=== PATIENT | female | born 1980 | race Caucasian/White ===

== ENCOUNTER 2016-03-21 14:03 | Inpatient (IN) | payer OTHER ==
[2016-03-21] MEDS ORDERED: fentaNYL 100 MCG/2 ML INJ IVP ONE (14:16)
[2016-03-21] MEDS ORDERED: BENZOCAINE UNIT DOSE SPRAY HURRICAINE MM ONE (14:16)
[2016-03-21] MEDS ORDERED: MIDAZOLAM 2 MG/2 ML VIAL IVP ONE (14:16)
[2016-03-21] MEDS ORDERED: NS 1,000 ML IV ONE (14:16)
[2016-03-21] MEDS ORDERED: MIDAZOLAM 2 MG/2 ML VIAL ONE (14:38)
[2016-03-21] MEDS ORDERED: fentaNYL 100 MCG/2 ML INJ ONE (14:38)
--- NOTE | 2016-03-21 17:19 | ECHO ---
[id number] + + [address] : : [facility] [address] : : [phone] + + Transesophageal Echocardiographic Report + ------+ :Name: COBY ANTHONY RStudy Date: 03/21/2016 02:48 PM : : Hospital Admission Number: [id number] Locatio n: CVC: :: 1980 Gender: Female Height: 61 in : :Age: 36 yrs Race: WH Weight: 147 lb : :Reason For Study: Mass observed in RA on Transthoracic echo : : BSA: 1.7 meters 2 : + ------+ Left Ventricle The left ventricle is normal in size and function. Ejection Fraction = 60%. Atria The interatrial septum is intact with no evidence for an atrial septal defect. Injection of contrast documented no interatrial shunt. No thrombus is detected in the left atrial appendage. A mass is seen in the right atrium. Mitral Valve The mitral valve is normal in structure and function. There is trace mitral regurgitation. Tricuspid Valve The tricuspid valve is normal in structure and function. Aortic Valve The aortic valve is normal in structure and function. There is no aortic insufficiency. Pulmonic Valve The pulmonic valve is normal in structure and function. Pericardium There is no pericardial effusion. Conclusion A 2D transesophageal echocardiogram with color flow Doppler was performed. The left ventricle is normal in size and function. Ejection Fraction = 60%. There are no regional wall motion abnormalities. Normal appearing valves. There is trace mitral regurgitation. There is no pericardial effusion. There is a mobile 1 x 2.5 cm mass adherent to the IVC RA junction. This is likely thrombus. Injection of contrast documented no interatrial shunt. No thrombus is detected in the left atrial appendage. Final Reading Physician: Trinity Moran signed on 03/21/2016 05:18 PM Ordering Physician: Volodymyr Hightower Performed By: Volodymyr Hightower MD
[2016-03-21] MEDS ORDERED: ONDANSETRON DISINTEGRATING 4 MG TAB PO PRN (20:36)
[2016-03-21] MEDS ORDERED: ONDANSETRON 4 MG/2 ML VIAL IVP PRN (20:36)
[2016-03-21] MEDS ORDERED: HYDROCODONE/APAP 5/325 TAB PO PRN (20:36)
[2016-03-21] MEDS ORDERED: ACETAMINOPHEN 325 MG TAB PO PRN (20:36)
--- NOTE | 2016-03-21 20:45 | PDGENHP ---
History and Physical - Chief Complaint new RA/IVC mass - History of Present Illness This is a 36 yo Female with hx of Breast Cancer undergoing chemotherapy who had a routine TTE today that showed a RA mass. She underwent a CRISTOFER which confirmed a new IVC/RA Mass. She was sent for direct admission for anticoagulation and for additional imaging. Otherwise, echocardiograms showed a preserved LVEF. She is not symptomatic. Denies CP, SOB, palpitations, leg swelling, or other. ROS: per HPI, otherwise negative PMHx: Breast cancer PSurgHx: Bilateral mastectomy, breast reconstruction soc: no T/E/I Meds/All: reviewed O: VSS, RA NAD AAOX3 NO JVD RRR CTAB S/NT/ND NO EDEMA LABS: NONE I/P #RIGHT ATRIUM/IVC MASS OF UNCLEAR ETIOLOGY #BREAST CANCER Plan: START HEPARIN DRIP GIVE IVF TO ENSURE HYDRATION CTA CHEST AND CT ABD/PELVIS TOMORROW ONCOLOGY TO CONSULT, DISCUSSED TODAY FULL CODE TOTAL CARE TIME IS 45 MINUTES History Information - Allergies/Home Medication List Allergies/Adverse Reactions: No Known Allergies Allergy (Unverified 10/02/15 09:54) Home Medications: DEXAMETHASONE 0 mg IV Q21D 03/21/16 [Last Taken 03/19/16] Docetaxel 0 mg IV Q21D 03/21/16 [Last Taken 03/11/16] Herceptin 440 MG/20 ML 0 mg IV Q21D 03/21/16 [Last Taken 03/11/16] PARAplatin 0 mg IV Q21D 03/21/16 [Last Taken 03/12/16] Perjeta 0 mg IV Q21D 03/21/16 [Last Taken 03/11/16] I have personally reviewed and updated: medical history, social history - Social History Smoking Status: Never smoked Physical Exam Temp Pulse Resp BP Pulse Ox 36.8 C 87 16 121/69 H 93 03/21/16 19:35 03/21/16 19:35 03/21/16 19:35 03/21/16 19:35 03/21/16 19:35
[2016-03-21] MEDS ORDERED: HEPARIN 10,000 UNIT/10 ML MDV IVP ONE (21:00)
[2016-03-21] MEDS ORDERED: HEPARIN 10,000 UNIT/10 ML MDV IVP PRN (21:00)
[2016-03-21 21:10] LABS: ABSOLUTE IMMATURE GRANULOCYTES 0.09 10^3/uL (0.00-0.10); ADD DIFF? NO; ADD MORPH? NO; ADD SCAN? NO; ATYPICAL LYMPHOCYTE FLAG 20 (0-99); FRAGMENT RBC FLAG 0 (0-99); HEMATOCRIT 34.4 % (38.0-47.0); HEMOGLOBIN 11.6 g/dL (12.6-16.3); LEFT SHIFT FLG 0 (0-99); LIPEMIA HEMOLYSIS FLAG 80 (0-99); MEAN CELL HEMOGLOBIN CONCENTR. 33.7 g/dL (32.4-36.7); MEAN CELL VOLUME 100.9 fL (81.5-99.8); MEAN PLATELET VOLUME 10.4 fL (8.7-11.7); PLATELET CLUMPS FLAG 0 (0-99); PLATELET COUNT 166 10^3/uL (150-400); RED BLOOD CELL COUNT 3.41 10^6/uL (4.18-5.33); RED CELL DISTRIBUTION WIDTH 13.3 % (11.5-15.2)
[2016-03-21 21:18] LABS: INR 1.08 (0.83-1.16); PROTIME(PATIENT) 13.9 SEC (12.0-15.0)
[2016-03-21 21:19] LABS: APTT 29.5 SEC (23.0-38.0)
[2016-03-21] MEDS: HEPARIN/DEXTROSE 500 ML IV SCH (21:45)
[2016-03-21] MEDS: NS 1,000 ML IV SCH (21:46)
[2016-03-22 04:18] LABS: % IMMATURE GRANULYOCYTES 1.1 % (0.0-1.1); ADD DIFF? NO; ADD MORPH? NO; ADD SCAN? NO; ATYPICAL LYMPHOCYTE FLAG 10 (0-99); FRAGMENT RBC FLAG 0 (0-99); HEMOGLOBIN 10.9 g/dL (12.6-16.3); LEFT SHIFT FLG 0 (0-99); LIPEMIA HEMOLYSIS FLAG 80 (0-99); MEAN CELL HEMOGLOBIN 33.7 pg (27.9-34.1); MEAN CELL VOLUME 102.2 fL (81.5-99.8); MEAN PLATELET VOLUME 10.5 fL (8.7-11.7); PLATELET CLUMPS FLAG 0 (0-99); PLATELET COUNT 152 10^3/uL (150-400); RED BLOOD CELL COUNT 3.23 10^6/uL (4.18-5.33); RED CELL DISTRIBUTION WIDTH 13.2 % (11.5-15.2)
[2016-03-22 04:44] LABS: ANION GAP 11 mEq/L (8-16); CALCIUM 8.9 mg/dL (8.5-10.4); CARBON DIOXIDE 25 mEq/l (22-31); CHLORIDE 109 mEq/L (97-110); CREATININE 0.7 mg/dL (0.6-1.0); GLOMERULAR FILTRATION RATE > 60; GLUCOSE 89 mg/dL (70-100); MAGNESIUM 1.5 mg/dL (1.6-2.3); SODIUM 145 mEq/L (134-144)
[2016-03-22] MEDS: NS 1,000 ML IV SCH ×2 (07:40→22:07)
[2016-03-22] MEDS ORDERED: IOPAMIDOL (ISOVUE 370) 100 ML BTL IV ONE (09:09)
--- NOTE | 2016-03-22 11:58 | CT ---
CT Chest Pulmonary Angiogram With Contrast Enhancement and Multiplanar Reconstructions at 1032 hours History: Right atrial and inferior vena cava mass on cardiac echo. History of breast cancer. Comparison: None available. Technique: 1.25 mm axial multidetector helical CT angiogram imaging was performed through the chest, abdomen and pelvis while 90 mL Isovue-370 were injected intravenously without complication. The imag es were then transferred to an independent workstation where multiplanar and three-dimensional recons tructions were performed by the interpreting physician and reviewed at multiple windows. Dose reducti on techniques were utilized. Findings: CT Pulmonary Angiogram Findings: No CT evidence of definite pulmonary thromboemboli. Subtle filling d efect in the right atrium measuring 15 x 14 mm in axial dimension. No pericardial effusion. No aortic aneurysm or dissection. CT Chest Findings: No pneumonia, pleural effusion or pneumothorax. No significant mediastinal or eric r adenopathy. No significant axillary adenopathy. Bilateral reconstruction implants noted. No suspici ous pulmonary nodules. No destructive osseous lesions. Impression: 1. No definite pulmonary thromboemboli. 2. Right atrial subtle 15 x 14 mm filling defect which may represent tumor thrombus, neoplasm, or pos sibly flow artifact. 3. Recommend cardiac MRI without and with contrast enhancement for further evaluation.
--- NOTE | 2016-03-22 12:59 | CT ---
CT Scan of the Abdomen and Pelvis (With Contrast) at 1032 hours History: Right atrial and inferior vena cava mass on cardiac echo. History of breast cancer. Technique: Axial computed tomographic images of the chest, abdomen and pelvis were obtained with the uneventful intravenous administration of 90 mL Isovue-300 contrast. No oral or rectal contrast which limits the study. Dose reduction techniques were utilized. Findings CT Abdomen Findings: Lung bases: No evidence of pleural effusion. No thrombus within the inferior vena cava or hepatic vei ns. Liver: No metastasis. Biliary system: No obstruction. Spleen: Normal. Pancreas: Normal. Adrenals: Normal. Kidneys: No obstruction or solid masses.. Abdominal Aorta: No aneurysm. No bowel obstruction, ascites, or significant retroperitoneal lymphadenopathy. CT Pelvis Findings: No significant retroperitoneal or pelvic adenopathy. IUD in the uterus. No signif icant adenopathy. No destructive osseous lesions. Impression: 1. No evidence of abdominal or pelvic metastasis. 2. No hepatic metastasis. 3. No evidence of thrombus in the inferior vena cava or hepatic veins.
--- NOTE | 2016-03-22 13:23 | GCON ---
[f rep st] CONSULTATION NEW PATIENT CONSULT REFERRING PHYSICIAN: Josiah Pittman MD REASON FOR CONSULTATION: Patient with known stage IIB, HER2 positive breast cancer, currently undergoing adjuvant chemotherapy. Incidentally found to have a right atrial filling defect on her recent echo. HISTORY OF PRESENT ILLNESS: Patient is a 36-year-old female who noted a mass in her left breast just below the nipple in August of 2015. Diagnostic mammogram showed lobulated asymmetric mass behind left nipple, 1.8 x 1.5 x 1.5. She had an in-office needle biopsy which showed invasive ductal carcinoma, grade 2, ER receptor was 5, CT 6. Proliferation index 5%. HER2 was 2+ but negative on reflex to FISH. Breast MRI showed left breast mass contiguous with the nipple, measuring 2 cm with associated 5 mm satellite nodule. There were no suspicious axillary nodes. After consultation, patient opted for bilateral mastectomies which were performed with reconstruction by Dr. Celeste on 10/20/2015. Path from left breast showed an infiltrating ductal carcinoma with lobular features, 3 cm. [place] grade 2. There was LVI invasion present. Margins were negative. There was associated DCIS. The sentinel lymph node showed 0.5 cm metastasis without extracapsular extension. A 2nd axillary lymph node showed 0.6 cm metastasis with focal extracapsular extension. The right breast and right sentinel lymph node were unremarkable. ER/CT was repeated on surgical specimen and these were the same with ER 5, and CT of 6. HER-2/casper was also repeated and this was positive with an IHC of 3+. She recovered well from surgery and has done relatively well. She is on adjuvant care therapy with Taxotere, carboplatin, Herceptin and Perjeta. She recently completed her 5th cycle and is due for her 6th and final cycle on April 01. Her previous echo November 2015 continued to look good. Surveillance echocardiogram showed concern for an atrial clot and she had a CRISTOFER done yesterday that showed EF of 60 %. No regional wall abnormalities. Normal-appearing valves. Mobile 1 x 2.5 cm mass adherent to the IVC RA junction, likely S thrombus. She also had a CTA that was done today that showed no definitive pulmonary thromboemboli, right atrial subtle 15 x 14 mm filling defect, could represent tumor thrombus, neoplasm or possibly flow artifact. A cardiac MRI was recommended. She is currently on heparin drip and asymptomatic. She feels well. She has actually tolerated chemotherapy remarkably well. She denies any shortness of breath, upper or lower extremity edema. Of note, the CTA that was done today showed no evidence of metastatic disease. CT abdomen was also done and this is pending. REVIEW OF SYSTEMS: As per HPI. Otherwise negative. PAST MEDICAL HISTORY: None significant. PAST SURGICAL HISTORY: None. FAMILY HISTORY: Father with prostate cancer. Father also had melanoma. Mother with unknown cancer. She has had genetic testing and came back with a BRCA2 variant. PIPE INSULATOR HISTORY: , she has a 4-year-old, and 8-year-old son. SOCIAL HISTORY: No tobacco, alcohol, or drugs. PHYSICAL EXAM: Today shows a blood pressure 118/66, pulse 87, respirations 16, saturating 99% on room air. Temp 36.7. GENERAL: She is a young woman, not in acute distress. Alert and oriented. HEENT: Alopecia, anicteric sclerae. Oropharynx is clear. HEART: Regular rate and rhythm. LUNGS: Clear to auscultation. ABDOMEN: Soft, nontender. Bowel sounds positive. LOWER EXTREMITIES: No significant edema. LABS: White blood cell count of 8.8, hemoglobin 10.9, hematocrit 33, platelet count of a 152,000. Sodium 145, creatinine 0.7, magnesium 1.5, calcium 8.9, potassium 4.0. ASSESSMENT AND PLAN: A 36-year-old with stage IIB, HER2 positive breast cancer on the left, currently undergoing adjuvant chemotherapy with TCHP and pending sequential radiation treatment. She has already had reconstructions in place with Dr. Celeste. She presents with an asymptomatic IVC/RA junction thrombus that does not appear to be a tumor. She has no evidence of metastatic disease by current imaging. She is currently on a heparin drip which I agree with. Would like Cardiology to weigh in. Not sure she needs a cardiac MRI but would leave this up to cardiology. Would favor transitioning to Lovenox if discharged and then could consider oral anticoagulation going forward. The patient is in agreement with the plan. Will follow her here while she is in the hospital. /[id number]/MODL MTDD
[2016-03-22] MEDS ORDERED: GADOBUTROL 10 ML VIAL IVP ONE (14:03)
--- NOTE | 2016-03-22 15:03 | US ---
Ultrasound Venous Duplex Doppler - Bilateral Legs at 1351 hours History: Cardiac thrombus. Findings: Ultrasound venous Duplex and Doppler imaging of the bilateral common femoral veins, femoral veins, popliteal veins, calf veins, and greater saphenous vein origins demonstrates normal compressi bility, Duplex color-flow, Doppler flow without deep venous thrombosis. Impression: No deep venous thrombosis bilateral legs.
[2016-03-22 16:08] LABS: TROPONIN I < 0.012 ng/mL (0-0.034)
--- NOTE | 2016-03-22 19:58 | MR ---
Cardiac MRI Examination, Without and With Contrast, Including Functional and Anatomic Evaluation History: Evaluate for possible right atrial mass. Technique: Short and long axis double inversion recovery sequences of the heart are obtained along wi th FIESTA cine sequences in the short and long axis. During intravenous administration of 10 mL Gadav ist, dynamic perfusion imaging of the heart is obtained in short axis, along with postcontrast delaye d enhanced imaging. Findings: There is a soft tissue signal intensity mass which arises from the inferior vena cava at th e junction with the right atrium and is pedunculated in features, extending into the right atrium jus t proximal to the tricuspid valve. This lesion is best visualized on the long axis FIESTA series. The lesion moves freely within the right atrium and demonstrates peripheral rim enhancement after contra st administration. Signal characteristics are soft tissue rather than fatty. This lesion may represen t a right atrial myxoma, although with the clinical clinical history of breast malignancy, intracardi ac metastatic disease is not excluded. Imaging features are atypical for intracardiac thrombus. Measu rement is somewhat difficult due to the mobile nature of the lesion, measuring approximately 2 cm in length and 1 cm in width. Study otherwise is unremarkable. Ventricular function appears normal. Valvular function appears carrie l. No additional extracardiac findings. The patient has undergone prior bilateral breast reconstructi on. Impression: 2.0 x 1.0 cm soft tissue signal intensity mass arising from the distal inferior vena cav a and extending into the right atrium, pedunculated in features, with peripheral enhancement after co ntrast administration. 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 Differential co nsiderations predominantly include right atrial myxoma versus intracardiac metastatic lesion.
--- NOTE | 2016-03-22 21:33 | HOSPPROG ---
Hospitalist Progress Note Assessment/Plan: Assessment: 36 yo F p/w IVC/right atrial mass in setting of breast cancer Plan: # IVC/atrial mass. 2x1 cm, appears fixed to wall, no e/o distal embolization into pulm art or e/o PE on CTA - no e/o DVT - cardiac MRI suggestive of solid tumor - given that it is unclear whether this is thrombus originating from port-cath vs. solid met tumor, systemic anticoagulation indicated (hep gtt), Xa 53 therapeutic - no e/o hemodynamic compromise, so lytics not indicated - d/w Dr. St and Dr. Mccullough, recommend procedure to identify mass and either surgically remove vs. angio-suction - plan to transition to lovenox in AM if no complications within these first 24hrs on hep gtt (i.e. no embolization/PE) given high risk of saddle embolization, and continue until 12hrs prior to procedure - plan for scheduled procedure next week since equipment needs to be ordered - high risk morbidity/mortality patient 2/2 above # Breast cancer. S/p surg, currently receiving chemo, plan for subsequent XRT - d/w Dr. Riddle, overall path from mass (i.e. if it is solid tumor) may affect tx plan Diet. Regular PPx. High risk, on hep gtt Code. Full Dispo. Upgrade to inpatient admission status, patient has high risk medical necessity with an atrial mass with potentially fatal embolization if it breaks apart during the initiation of heparin products, requiring ongoing use of heparin gtt and evaluation by IR/CT surgery to determine plan for surgical removal Subjective: patient reports not present chest pain or shortness of breath, required counseling about the dx and tx plan Objective: Vital Signs Temp Pulse Resp BP Pulse Ox 37.0 C 77 16 101/69 95 03/22/16 19:25 03/22/16 19:25 03/22/16 19:25 03/22/16 19:25 03/22/16 19:25 Laboratory Results 03/22/16 04:05 03/22/16 04:05 03/21/16 03/22/16 03/23/16 05:59 05:59 05:59 Intake Total 1220 2065 Balance 1220 2065 PT 13.9 SEC (12.0-15.0) 03/21/16 20:57 INR 1.08 (0.83-1.16) 03/21/16 20:57 - Time Spent With Patient Time Spent with Patient: greater than 35 minutes Time Spent with Patient: Greater than 35 minutes spent on this patients care, greater than 50% of time spent counseling, educating, and coordinating care regarding the above mentioned plan. - Physical Exam Constitutional: no apparent distress, appears nourished, not in pain, chronically ill appearing Cardiovascular: No systolic murmur, No irregularly irregular, No tachycardia, No edema Respiratory: no respiratory distress, no rales or rhonchi, clear to auscultation Gastrointestinal: normoactive bowel sounds, soft, non-tender abdomen, no palpable masses Skin: other (port site w/o erythema/induration) Neurologic: AAOx3, sensation intact bilaterally Psychiatric: interacting appropriately, not anxious, not encephalopathic, thought process linear ICD10 Worksheet Patient Problems: Problems Problem Status Diagnosed Cancer of central portion of left breast Acute
[2016-03-22] MEDS: HEPARIN/DEXTROSE 500 ML IV SCH (22:06)
[2016-03-23 07:03] LABS: % IMMATURE GRANULYOCYTES 0.8 % (0.0-1.1); ABSOLUTE IMMATURE GRANULOCYTES 0.06 10^3/uL (0.00-0.10); ADD DIFF? NO; ADD MORPH? NO; ADD SCAN? NO; ATYPICAL LYMPHOCYTE FLAG 10 (0-99); FRAGMENT RBC FLAG 0 (0-99); HEMATOCRIT 35.5 % (38.0-47.0); HEMOGLOBIN 11.9 g/dL (12.6-16.3); LEFT SHIFT FLG 0 (0-99); LIPEMIA HEMOLYSIS FLAG 80 (0-99); MEAN CELL HEMOGLOBIN 34.3 pg (27.9-34.1); MEAN CELL HEMOGLOBIN CONCENTR. 33.5 g/dL (32.4-36.7); MEAN CELL VOLUME 102.3 fL (81.5-99.8); MEAN PLATELET VOLUME 10.8 fL (8.7-11.7); PLATELET CLUMPS FLAG 10 (0-99); PLATELET COUNT 180 10^3/uL (150-400); RED BLOOD CELL COUNT 3.47 10^6/uL (4.18-5.33); RED CELL DISTRIBUTION WIDTH 13.2 % (11.5-15.2)
[2016-03-23 07:35] LABS: ANION GAP 12 mEq/L (8-16); CALCIUM 9.6 mg/dL (8.5-10.4); CARBON DIOXIDE 21 mEq/l (22-31); CHLORIDE 110 mEq/L (97-110); CREATININE 0.6 mg/dL (0.6-1.0); GLOMERULAR FILTRATION RATE > 60; GLUCOSE 88 mg/dL (70-100); POTASSIUM 4.2 mEq/L (3.5-5.2); SODIUM 143 mEq/L (134-144)
[2016-03-23 07:45] VITALS: BP 107/67; PULSE 67; RESP 18; TEMP 98.1; O2SAT 97
[2016-03-23] MEDS ORDERED: ENOXAPARIN 60 MG/0.6 ML SYR SC SCH (09:00)
[2016-03-23] MEDS ORDERED: ENOXAPARIN 80 MG/0.8 ML SYR SC SCH (10:00)
--- NOTE | 2016-03-23 11:10 | PDDCSUM ---
Discharge Summary Discharge Summary: DISCHARGE SUMMARY FOLLOW-UP ITEMS: Follow up with CT surgery this Friday as scheduled DATE OF ADMISSION: 03/21/2016 DATE OF DISCHARGE: 03/23/2016 DISCHARGE DIAGNOSES: 1. Acute IVC/right atrial mass 2. Breast cancer CONSULTATIONS: Hematology Oncology, Interventional Radiology, Cardiology, CT surgery PROCEDURES / IMAGING: Cardiac MRI suggesting that the mass may be more solid tumor then clot, lower extremity ultrasound without any DVT, CT angiograms demonstrating no evidence of pulmonary embolism CHIEF COMPLAINT: Suspected clot SUBJECTIVE: Patient is feeling well at time of discharge, she has no chest pain or shortness of breath PHYSICAL EXAM ON DISCHARGE: Systolic blood pressure is 100, heart rate 70, afebrile overnight, satting well on room air, alert awake oriented x3 pain level 0 10 LABS ON DISCHARGE: Creatinine 0.7, hemoglobin 11.9, white blood cell count 7600 HOSPITAL COURSE BY PROBLEM: 1. Acute IVC/right atrial mass. Patient has a newly diagnosed mass originating in her IVC extending into her right atrium, approximately 2 by 1 cm , appearing fixed to the wall on transesophageal echocardiogram as well as chest imaging. There does not appear to be any distal embolization into the pulmonary artery on CT angiogram. She has no evidence of DVT on lower extremity ultrasound. Cardiac MRI suggests solid tumor but she will need intraoperative confirmation with biopsy. Her case was discussed extensively with Dr. St from Interventional Radiology as well as Dr. Anguiano and Dr. Mccullough from CT surgery, the plan is to pursue intraoperative biopsy and potential angio -vac versus surgical removal this week once the appropriate equipment has been obtained. The patient will follow up with Dr. Mccullough in the clinic on Friday and determine the appropriate approach. In the meantime she will remain on systemic anticoagulation and I have provided her with instructions to hold her anticoagulation 24 hours prior to procedure. The mass did not cause any hemodynamic instability and lytics were not indicated during this hospitalization. 2. Breast cancer. Patient is status post surgery, currently receiving chemotherapy, there are plans for subsequent radiation therapy. Patient was seen in consultation by Oncology and the overall path from the mass will potentially affect future treatment plan. The patient should follow up with Dr. Connolly in the outpatient setting following her intervention with CT surgery. Systemic anticoagulation with Lovenox is appropriate for short-term anticoagulation and then for long-term management will be discussed through the Oncology Clinic. DISCHARGE MEDICATIONS: Please see official discharge medication reconciliation sheet in chart , Lovenox 65 mg twice daily DISCHARGE INSTRUCTIONS: Bleeding risks were discussed with the patient, the risks of embolism were discussed with the patient, she will follow up with CT surgery Clinic on Friday. TIME SPENT: Greater than 30 minutes were spent on direct patient care, as well as discharge planning and preparation.
--- NOTE | 2016-03-24 13:22 | IR ---
Interventional Consult Relevant History: This is a 36-year-old female who has a history of breast cancer, got an echo or CRISTOFER for evaluation of ejection fraction and chamber function prior to chemotherapy, and was incidentally found to have a mobile mass at the junction of the IVC and the right atrium. Subsequently, CT angiog daphney was performed confirming such a mass that is attached to the medial wall of the IVC/right atrial junction. Interventional radiology was consulted for consideration of some sort of a lytic or suction therapy for this patient. Otherwise, patient is negative for any pulmonary embolism, negative for an y DVT, and has no chest related symptoms. Consultation: I have reviewed the CRISTOFER in detail with Dr. Jerald Hightower of cardiology. This lesion is a fi ngerlike protrusion with a broad-based attachment to the medial wall of the IVC/right atrial junction . It is definitively attached to that. The rest of it is indeed just freely floating in the high volu me and turbulent blood flow. MRI of the heart was subsequently performed with gadolinium to further characterize its vascular enha ncement. It has peripheral enhancement, but really does not have any significant central enhancement. However, this is most compatible from an MRI standpoint of an intracardiac solid tumor rather than a blend thrombus. Differential for the tumor would include myxoma versus metastatic disease. I have also reviewed these findings with Dr. Unruly Keller. There is a device called an AngioVac that i s a large bore suction device specifically designed to remove atrial thrombus or masses. Dr. Unruly lyon feels that even if it is potentially tumor, performing an AngioVac for at least some tissue extr action could be worthwhile. If tissue diagnosis returns indeed solid tumor of any kind, patient may n eed open heart surgery for complete removal of the rest of it. The above are also discussed with Dr. Josiah Pittman of hospitalist service. Plan is to put the patient on anticoagulation such as Lovenox, discharge to home, and for the patient to be brought back as an o utpatient for the above procedure in the operating room. The procedure will be performed with cecilia nunez of interventional radiology (Dr. Adams) and Dr. Unruly Keller of cardiothoracic surgery. CRISTOFER will be done simultaneously for visualization and guidance at the same time, along with fluoroscopy. If this does represent blend thrombus, often with anticoagulation alone this mass would be either smaller or gone by the time she comes back for the repeat evaluation. Assessment: Pedunculated mass at the junction of the right atrium/IVC with broad-based attachment to the wall medially, with mild rim enhancement most consistent with a solid tumor rather than blend thr ombus. Plan: Intraoperative AngioVac procedure for tissue sampling. Patient may need surgery if this is inde ed a solid mass. This report is for documentation only. There was no tmvf-am-sldy time with the patient.
== END 2016-03-23 12:40 | disposition home or self-care (01) | DRG 845 ==
LOC: FCATH 14:03 → F1N 16:24 → F2W 19:03 → OBSVTOIN 03-22 21:34
PROVIDERS: ADMIT Internal Medicine Cardiovascular Disease; ATTEND Internal Medicine
DX: D49.89 Neoplasm of unspecified behavior of other specified sites (principal); C50.912 Malignant neoplasm of unspecified site of left female breast; C77.3 Secondary and unspecified malignant neoplasm of axilla and upper limb lymph nodes; Z17.0 Estrogen receptor positive status [ER+]
CPT/HCPCS: 85520-90; A9585; G0378; J1644; J1650; J2250; J3010; Q9967

== ENCOUNTER 2016-03-27 10:04 | Inpatient (IN) | payer OTHER ==
[2016-03-27] MEDS ORDERED: ceFAZolin 2 GM/DEXTROSE 100 ML IV ONE (12:00)
[2016-03-27] MEDS ORDERED: LIDOCAINE 1% 5 ML SDV ID PRN ×2 (12:00→14:12)
[2016-03-27] MEDS ORDERED: NS 1,000 ML IV ONE (12:00)
[2016-03-27] MEDS ORDERED: LR 1,000 ML IV ONE (14:12)
[2016-03-27] MEDS ORDERED: CEFAZOLIN 2 GM/DEXTROSE/100 ML BAG IV ONE (15:25)
[2016-03-27] MEDS ORDERED: PROPOFOL 200 MG/20 ML VIAL ONE (16:42)
[2016-03-27] MEDS ORDERED: LIDOCAINE 2% 5 ML SDV ONE (16:42)
[2016-03-27] MEDS ORDERED: fentaNYL 100 MCG/2 ML INJ ONE ×3 (16:42→19:44)
[2016-03-27] MEDS ORDERED: DEXAMETHASONE 4 MG/ML VIAL ONE (16:42)
[2016-03-27] MEDS ORDERED: ROCURONIUM 50 MG/5 ML VIAL ONE ×2 (16:42→17:53)
[2016-03-27] MEDS ORDERED: MIDAZOLAM 2 MG/2 ML VIAL ONE (16:44)
[2016-03-27] MEDS ORDERED: IOPAMIDOL (ISOVUE-M 200) 20 ML VIAL IV ONE (17:28)
[2016-03-27] MEDS ORDERED: BUPIVACAINE/EPI 0.25% 30 ML SDV ONE (17:31)
[2016-03-27] MEDS ORDERED: PROTAMINE SULFATE 50 MG/5 ML VIAL IVP ONE (18:52)
[2016-03-27] MEDS ORDERED: SUGAMMADEX SODIUM 200 MG/2 ML VIAL IVP ONE (19:08)
[2016-03-27] MEDS ORDERED: SKIN ADHESIVE (DERMABOND) 1 EACH TP ONE (19:13)
[2016-03-27] MEDS ORDERED: METOCLOPRAMIDE 10 MG TAB PO PRN (19:22)
[2016-03-27] MEDS ORDERED: ACETAMINOPHEN 325 MG TAB PO PRN (19:22)
[2016-03-27] MEDS ORDERED: METOCLOPRAMIDE 10 MG/2 ML VIAL IVP PRN (19:22)
--- NOTE | 2016-03-27 19:31 | POSTOPPROG ---
Post Op Note Date of Operation: 03/27/16 Surgeon: Dami Mccullough Nurse Discharge: Christina Loyola Anesthesiologist: Karl Anesthesia: GET(General Endotracheal) Pre-op Diagnosis: L atrial mass Post-op Diagnosis: thrombus Procedure: angiovac extraction L atrial mass Inf/Abcess present in the surg proc area at time of surgery?: No EBL: Minimal Complications: none Specimen(s): L atrial mass
[2016-03-27] MEDS ORDERED: WARFARIN SODIUM 5 MG TAB PO ONE (20:00)
[2016-03-27] MEDS ORDERED: HYDROmorphONE/DILAUDID 2 MG/ML SYR ONE (20:05)
--- NOTE | 2016-03-27 20:30 | GOP ---
[f rep st] OPERATIVE REPORT DATE OF OPERATION: 03/27/2016 SURGEON: Dami Mccullough DO EDGER MACHINE OPERATOR: Jerrod Loyola PA-C ANESTHESIOLOGIST: Pancho Barajas MD PREOPERATIVE DIAGNOSIS: Right atrial mass. POSTOPERATIVE DIAGNOSIS: Right atrial mass. Await path report. PROCEDURE PERFORMED: 1. Right jugular AngioVAC extraction with cardiopulmonary bypass support. 2. Removal of right indwelling Vtzebh-I-Zheu. FINDINGS: DESCRIPTION OF PROCEDURE: The patient was found to have a large 2 x 3 mobile mass in the right atri um attached to the atrial wall at the inferior vena caval junction. It was quite mobile. Concern w as for distal embolization. She was asymptomatic. This was done as a screening echo for her ongoin g chemotherapy for breast cancer. She was referred for surgical excision. She was consented for re moval with AngioVAC evacuation. She was brought to the operating room, intubated. She was prepped and draped in sterile classical manner. Arterial line was placed in the right arm by Anesthesia. Aidee Barajas placed 2 wires in the right internal jugular for me while I percutaneously placed a femora l return catheter, a 17-Yakut Angiocath under echo guidance with wire identification in the right a trium. This had good venous return. It was connected to the centrifugal pump. We then placed a 6-F rench Cordis in the neck for a snare and also a 27-Yakut Jolo sheath in the neck after dilating the tract under fluoro guidance as well as transesophageal echo guidance without incident. We then con nected the AngioVAC catheter to the system. We then placed the AngioVAC catheter through the Jolo s phillip over a Lunderquist wire, super stiff, under fluoro guidance, noting the wire into the inferior vena cava and with placement of the Angiocath catheter through the Jolo under fluoro and echo yovany nce. We then removed the wire and the trocar and began centrifugal pump at 1 L, increasing it to 4 L as we approached the mass. Immediately, as we approached the mass, a large segment of it was easi ly retrieved and returned to the trap in the system. Multiple repeated attempts, we were able to re move the majority of it, although there was still a residual firm base still stuck to the atrial wal l without mobile nature at all. This was felt to be unlikely retrievable with the snare, and unfort unately trying to manipulate the snare initially around the catheter in order to have that available , we actually became entangled with the [id number]-Y-[id number], which was subsequently removed with the snare . The patient was hemodynamically stable throughout. She had been given 15,000 of heparin prior to the procedure, which was reversed after the cannulas were removed. Pursestring sutures were placed at the percutaneous entrance sites, as were dressings. The remainder of [id number]-Y-[id number] was removed and the pocket was closed with interrupted Vicryls and subcuticular stitch on the skin. Dressings w ere applied. The patient was extubated and removed to the recovery room in stable condition. /[id number]/MODL
[2016-03-27] MEDS ORDERED: ceFAZolin 2 GM/DEXTROSE 100 ML IV SCH (22:00)
[2016-03-28] MEDS: ceFAZolin 2 GM in D5W 100 ML IV SCH ×2 (00:58→08:28)
[2016-03-28] MEDS: KETOROLAC 30 MG/1 ML SDV IVP PRN ×2 (01:05→08:24)
[2016-03-28] MEDS: OXYCODONE/APAP 5/325 TAB PO PRN ×3 (04:03→11:52)
[2016-03-28 05:14] LABS: INR 1.07 (0.83-1.16); PROTIME(PATIENT) 13.8 SEC (12.0-15.0)
[2016-03-28 08:00] VITALS: RESP 14
[2016-03-28] MEDS ORDERED: ENOXAPARIN 80 MG/0.8 ML SYR SC SCH ×2 (09:00)
--- NOTE | 2016-03-28 09:31 | SOAPPROG ---
SOAP Progress Note Assessment/Plan: POD #1 angiovac extraction of right atrial mass, allyssa-cath removal - Preliminary report of mass stated to be thrombus - final report pending - Continue Lovenox SQ BID with transition to Coumadin and management in clinic - d/w pharmacy - Allyssa-cath won't need to be re-inserted as only one chemotherapy session left - Breast CA management as per oncology - Home today with f/u next week for wound check/suture removal Subjective: Neck is sore. No N/V. Objective: Vital Signs Temp Pulse Resp BP Pulse Ox 36.7 C 82 14 90/50 L 92 03/28/16 07:58 03/28/16 07:58 03/28/16 07:58 03/28/16 07:58 03/28/16 07:58 03/27/16 03/28/16 03/29/16 05:59 05:59 05:59 Intake Total 2750 250 Output Total 475 Balance 2275 250 PT 13.8 SEC (12.0-15.0) 03/28/16 04:00 INR 1.07 (0.83-1.16) 03/28/16 04:00 Physical Exam - Physical Exam General Appearance: WD/WN, alert, no apparent distress Neck: full range of motion, supple, tender lateral Respiratory: No respiratory distress Cardiac/Chest: regular rate, rhythm Abdomen: non-tender, soft, No distended Skin: normal color, warm/dry, other (RIJ/RFV/old allyssa-cath sites C/D/I and soft with signs of infection/hematoma) Extremities: No pedal edema Neuro/Psych: no motor/sensory deficits, alert, normal mood/affect, oriented x 3 ICD10 Worksheet Patient Problems: Problems Problem Status Onset Cancer of central portion of left breast Chronic
[2016-03-28 11:23] VITALS: TEMP 98.8; O2SAT 91
[2016-03-28 11:26] VITALS: BP 97/55; PULSE 94
--- NOTE | 2016-03-28 15:59 | PDDCSUM ---
Discharge Summary Discharge Summary: ADMISSION DATE: 03/27/16 DISCHARGE DATE: 03/28/16 ADMISSION DX: 1. Right atrial mass DISCHARGE DX: 2. Right atrial mass SECONDARY DX: 1. Breast CA s/p bilateral mastectomies with ongoing chemotherapy PROCEDURES: 03/28/16, Dami Mccullough, DO: 1. Right jugular AngioVac extraction 2. Removal right indwelling portacath HPI: Pt with h/o breast CA and ongoing chemotherapy found to have a 2 x 3 cm mobile mass in the right atrium. HOSPITAL COURSE: The patient underwent the procedures above. Please see operative report for further details. CONDITION - Good DISPOSITION: - Home ACTIVITY: Pt was instructed on sternal precautions, activity limitations, and which problems to call [facility] with. Please see Discharge Plan in chart for specifics. D/C MEDICATIONS: 1. Chemotherapy 1 ea IV Q21D 03/27/16 2. Enoxaparin 65 mg SQ BID #14 doses 3. Warfarin Sodium 5 mg PO ONCE@16 #30 tab (INR goal 2-3) 4. oxyCODONE/APAP 5/325 [Percocet 5/325 (*)] 1 - 2 tab PO Q4HRS PRN #20 tab PENDING STUDIES/LABS: 1. INR, 04/01/16 at Coumadin clinic F/U APPOINTMENTS: 1. Dami Mccullough DO - 04/02/16, 10:15 AM
[2016-03-28] MEDS ORDERED: WARFARIN SODIUM 5 MG TAB PO ONE (16:00)
== END 2016-03-28 12:15 | disposition home or self-care (01) | DRG 303 ==
LOC: F3N 10:04 → F2W 19:40
PROVIDERS: ADMIT Thoracic Surgery (Cardiothoracic Vascular Surgery); ATTEND Thoracic Surgery (Cardiothoracic Vascular Surgery)
PROC: 0JPT03Z Removal of Infusion Device from Trunk Subcutaneous Tissue and Fascia, Open Approach (ICD-10-PCS; principal; 2016-03-27 14:45)
PROC: 02B Heart and Great Vessels, Excision (ICD-10-PCS; principal; 2016-03-27 14:45)
DX: I51.3 Intracardiac thrombosis, not elsewhere classified (principal); C50.912 Malignant neoplasm of unspecified site of left female breast; Z79.01 Long term (current) use of anticoagulants; Z90.13 Acquired absence of bilateral breasts and nipples
CPT/HCPCS: J0690; J1100; J1170; J1650; J1885; J2250; J2704; J2720; J3010; Q9966

== ENCOUNTER → 2016-05-28 | Outpatient (CLI) | payer OTHER | LOC: FIMAGING 15:31 | PROVIDERS: ATTEND Radiology Radiation Oncology | DX: J40 Bronchitis, not specified as acute or chronic (principal) ==

== ENCOUNTER 2016-11-05 06:19 | Observation (INO) | payer OTHER ==
[2016-11-05] MEDS ORDERED: VASOPRESSIN 20 UNIT/ML VIAL ONE (07:00)
--- NOTE | 2016-11-05 07:02 | PDANEPAE ---
ANE Past Medical History - Cardiovascular History Hx Hypertension: No Hx Arrhythmias: No Hx Chest Pain: No Hx Coronary Artery / Peripheral Vascular Disease: No Hx CHF / Valvular Disease: No Hx Palpitations: No Cardiovascular History Comment: feb right atrial clot - Pulmonary History Hx COPD: No Hx Asthma/Reactive Airway Disease: Yes Hx Recent Upper Respiratory Infection: No Hx Oxygen in Use at Home: No Hx Sleep Apnea: No Sleep Apnea Screening Result - Last Documented: Negative Pulmonary History Comment: MILD ASTHMA WORSE WITH COLDS. NO INHALER USE FOR 1.5 YRS - Neurologic History Hx Cerebrovascular Accident: No Hx Seizures: Yes Hx Dementia: No Neurologic History Comment: AGE 9 ? REACTION TO MAKEUP NO DX MADE NONE SINCE - Endocrine History Hx Diabetes: No - Renal History Hx Renal Disorders: No - Liver History Hx Hepatic Disorders: No - Neurological & Psychiatric Hx Hx Neurological and Psychiatric Disorders: No Neurological / Psychiatric History Comment: anxiety,mild depression - Cancer History Hx Cancer: Yes Cancer History Comment: NEW DX BREAST CA - Congenital Disorder History Hx Congenital Disorders: No - GI History Hx Gastrointestinal Disorders: No Gastrointestinal History Comment: GERD WITH - Other Health History Other Health History: HAS IUD, RASH TO BACK OF NECK UNDER ARMS ?RADIATION - Chronic Pain History Chronic Pain: No - Surgical History Prior Surgeries: SADE MASTECTOMY. LT KNEE SCOPE. TONSILLECTOMY ANE Review of Systems Review of Systems: - Exercise capacity METS (RN): 4 METS ANE Patient History - Allergies Allergies/Adverse Reactions: No Known Allergies Allergy (Unverified 10/02/15 09:54) - Home Medications Home Medications: Chemotherapy 1 ea IV Q21D 03/27/16 [Last Taken 03/11/16] Anastrozole [Arimidex 1 mg (*)] 1 mg PO DAILY 09/27/16 [Last Taken Unknown] Ibuprofen [Motrin (*)] 200 mg PO DAILY PRN 09/27/16 [Last Taken Unknown] Leuprolide Acetate [Lupron Depot] 11.25 mg IM Q30D 09/27/16 [Last Taken Unknown] Montelukast Sodium [Singulair 10 mg (*)] 10 mg PO Q2D 09/27/16 [Last Taken Unknown] Multivitamins [Multivitamin (*)] 1 each PO DAILY 09/27/16 [Last Taken Unknown] - NPO status NPO Since - Liquids (Date): 11/04/16 NPO Since - Liquids (Time): 22:00 NPO Since - Solids (Date): 11/04/16 NPO Since - Solids (Time): 21:00 - Smoking Hx Smoking Status: Never smoked - Family Anes Hx Family Hx Anesthesia Complications: NEG ANE Labs/Vital Signs - Vital Signs Blood Pressure: 107/68 Heart Rate: 72 Respiratory Rate: 16 O2 Sat (%): 96 Height: 154.94 cm Weight: 64.41 kg ANE Physical Exam - Airway Mallampati Score: Class 1 - ASA Status ASA Status: II ANE Anesthesia Plan Anesthesia Plan: general endotracheal anesthesia
[2016-11-05] MEDS ORDERED: fentaNYL 100 MCG/2 ML INJ ONE ×4 (07:11→10:54)
[2016-11-05] MEDS ORDERED: MIDAZOLAM 2 MG/2 ML VIAL ONE (07:11)
[2016-11-05] MEDS ORDERED: PROPOFOL 200 MG/20 ML VIAL ONE (07:12)
[2016-11-05] MEDS ORDERED: LIDOCAINE 1% 2 ML INJ ONE (07:23)
[2016-11-05] MEDS ORDERED: CEFAZOLIN 2 GM/DEXTROSE/100 ML BAG IV ONE (07:34)
[2016-11-05] MEDS ORDERED: ceFAZolin 2 GM/DEXTROSE 100 ML IV ONE (07:36)
--- NOTE | 2016-11-05 07:39 | PDHPUP ---
History & Physical Update H&P update statement: This history and physical update is based on an assessment of the patient which was completed after admission or registration (within 24 hours), but prior to the surgery/procedure. H&P update: H&P reviewed & patient examined, no change in patient's condition since H&P completed
[2016-11-05] MEDS ORDERED: ONDANSETRON 4 MG/2 ML VIAL ONE ×2 (08:35→09:34)
[2016-11-05] MEDS ORDERED: METOCLOPRAMIDE 10 MG/2 ML VIAL ONE (08:36)
[2016-11-05] MEDS ORDERED: LIDOCAINE 2% JELLY 5 ML TUBE ONE (08:36)
[2016-11-05] MEDS ORDERED: LR 500 ML IV PRN (09:32)
[2016-11-05] MEDS ORDERED: NALOXONE HCL 0.4 MG/ML INJ IVP PRN ×2 (09:32→10:00)
[2016-11-05] MEDS ORDERED: ALBUTEROL 3 ML DEYVIAL IH PRN (09:32)
[2016-11-05] MEDS ORDERED: PROMETHAZINE HCL 25 MG/ML INJ IVP PRN (09:32)
--- NOTE | 2016-11-05 09:33 | POSTANESTH ---
Post Anesthetic Evaluation Cardiovascular Status: Normal, Stable Respiratory Status: Normal, Stable Level of Consciousness/Mental Status: Can Participate in Eval Pain Control: Adequate, Prn Tx Ordered Nausea/Vomiting Control: Adequate, Prn Tx Ordered Complications Possibly Related to Anesthesia: None Noted
[2016-11-05] MEDS ORDERED: PROMETHAZINE HCL 25 MG/ML INJ ONE (09:36)
[2016-11-05] MEDS: fentaNYL 100 MCG/2 ML INJ IVP PRN ×5 (09:38→10:58)
[2016-11-05] MEDS ORDERED: RN MESSAGE:REGARDING ANALGESIC ORDERING DR MISC SCH (10:00)
[2016-11-05] MEDS: RN MESSAGE:DATE/TIME OF ADMIN MISC SCH (11:00)
[2016-11-05] MEDS ORDERED: LR 1,000 ML IV SCH (12:00)
[2016-11-05] MEDS: KETOROLAC 30 MG/1 ML SDV IVP SCH ×2 (12:03→18:11)
[2016-11-05] MEDS ORDERED: HYDROmorphONE/DILAUDID 1 MG/ML INJ IVP ONE (12:37)
[2016-11-05] MEDS: OXYCODONE/APAP 5/325 TAB PO PRN ×2 (15:00→15:03)
[2016-11-05] MEDS: ONDANSETRON 4 MG/2 ML VIAL IVP PRN (16:58)
--- NOTE | 2016-11-05 22:46 | GOP ---
[f rep st] OPERATIVE REPORT DATE OF OPERATION: 11/05/2016 SURGEON: Enid Villalpando MD INTER COM SERVICER: communication assistant was ASTRID Marie. ANESTHESIA: Spinal with morphine for postop pain control and general anesthesia with LMA. ANESTHESIOLOGIST: Edwin Lucas MD. PREOPERATIVE DIAGNOSIS: 1. Early age breast cancer with need for prophylactic and therapeutic bilateral salpingo-oophorectom y. 2. History of dysfunctional uterine bleeding. 3. Recent diagnosis of BRCA2 mutation. POSTOPERATIVE DIAGNOSIS: 1. Early age breast cancer with need for prophylactic and therapeutic bilateral salpingo-oophorectom y. 2. History of dysfunctional uterine bleeding. 3. Recent diagnosis of BRCA2 mutation. PROCEDURE PERFORMED: Total vaginal hysterectomy, bilateral salpingo-oophorectomy. FINDINGS: Normal-appearing cervix. Normal-appearing uterus and bilateral ovaries and fallopian tube s. No incidental abnormality. ESTIMATED BLOOD LOSS: 50 cc. INDICATIONS: Patient is a 36-year-old G2, P2, vasectomy for control, and she has completed her childbearing, was diagnosed in August of 2015 of left-sided breast cancer stage IIB. She has undergon e bilateral mastectomy, 10/2015, chemotherapy that ended in 03/2016, radiation ended in 05/2016. Of note, developed an atrial thrombosis while on tamoxifen and this was incidentally noted when echocard iogram done, which has since resolved. She has then been on Herceptin, Lupron and anastrozole, and d oing well. Recently, her BRCA2 gene testing was upgraded to mutation and she desires removal of ovar ies and uterus for the above reasons. DESCRIPTION OF PROCEDURE: With informed consent signed, patient was taken to the operating room and placed under spinal then general anesthesia without complication, placed in a high dorsal lithotomy p osition, prepped and draped in the usual sterile fashion and Patterson catheter placed. A tenaculum was placed on the cervix for traction and then a posterior colpotomy was performed using sharp scissors. The posterior peritoneal edge was approximated into the vaginal cuff edge with a running baseball st itch for hemostatic purposes. Next, a curved Laurent was used to grasp the uterosacral ligament. This was cut and suture ligated. The same was done on the right. The cardinal ligament on each side was clamped, cut, and suture ligated. The uterine vessels on each side were clamped, cut, and suture li gated. The abdomen was entered anteriorly and the bladder pushed off the lower uterine segment and t hen the anterior and posterior leaves of the broad ligament were clamped, cut, and suture ligated. N ext, the utero-ovarian ligaments were clamped, cut, and suture ligated. The left ovary and fallopian tube were grasped with a Romeo and the infundibulopelvic ligament was clamped, cut, and this was f ree tied and suture ligated. The same was done on the right. There was a little bit of bleeding fro m the right, but with pressure with a sponge stick, it subsided. Once both ovaries were removed and the Ashley culdoplasty was performed to obliterate the cul-de-sac, Vicryl sutures were placed in at 6 o'clock into the vaginal cuff, then the left uterosacral ligament and then bites of the peritoneum, posterior peritoneum grasped and then the right uterosacral ligament coming out the same entry point with a suture and this was tied down and then the vaginal cuff was closed with [id number] 2-0 Vi cryl sutures. Again, hemostasis was noted. The patient was awakened in the operating room and taken to the recovery room in stable condition, having tolerated the procedure well. /[id number]/MODL
[2016-11-06] MEDS: KETOROLAC 30 MG/1 ML SDV IVP SCH ×2 (00:01→05:58)
[2016-11-06] MEDS: OXYCODONE/APAP 5/325 TAB PO PRN (06:13)
[2016-11-06] MEDS: RN MESSAGE:DATE/TIME OF ADMIN MISC SCH ×2 (06:53→10:15)
[2016-11-06] MEDS: ONDANSETRON 4 MG/2 ML VIAL IVP PRN (09:31)
--- NOTE | 2016-11-06 10:50 | SOAPPROG ---
SOAP Progress Note Assessment/Plan: Assessment:POD #1 doing better , had some nausea this am but eating and taking po pain meds, feels goog to go home and no bleeding Plan: D/c home f/u in 1 week percocet for pain , has zofran at home 11/06/16 10:47 pod Subjective: mild nausea , slept well and pain is better Objective: abd soft , few BS,lungs CTA perineum no bleeding Vital Signs Temp Pulse Resp BP Pulse Ox 37.4 C 72 17 91/58 L 94 11/06/16 04:01 11/06/16 06:41 11/06/16 04:01 11/06/16 04:01 11/06/16 06:41 11/05/16 11/06/16 11/07/16 05:59 05:59 05:59 Intake Total 2950 Output Total 1330 Balance 1620 ICD10 Worksheet Patient Problems: Problems Problem Status Onset angiovac extraction of thrombus Acute Cancer of central portion of left breast Chronic
[2016-11-06] MEDS ORDERED: KETOROLAC 30 MG/1 ML SDV IVP ONE (11:00)
[2016-11-06 13:29] VITALS: BP 108/69; PULSE 92; RESP 16; TEMP 98.8; O2SAT 96
== END 2016-11-06 12:20 | disposition home or self-care (01) ==
LOC: F3E 06:19 → FOB 11:11
PROVIDERS: ADMIT Obstetrics & Gynecology Gynecology; ATTEND Obstetrics & Gynecology Gynecology
DX: Z15.01 Genetic susceptibility to malignant neoplasm of breast (principal); N93.8 Other specified abnormal uterine and vaginal bleeding; C50.112 Malignant neoplasm of central portion of left female breast; Z92.21 Personal history of antineoplastic chemotherapy; Z92.3 Personal history of irradiation; Z86.718 Personal history of other venous thrombosis and embolism
CPT/HCPCS: 58262; G0378; J0690; J1170; J1885; J2250; J2405; J2550; J2704; J2765; J3010

== ENCOUNTER → 2016-11-14 | Outpatient (CLI) | payer OTHER | LOC: FIMAGING 15:02 | PROVIDERS: ATTEND Internal Medicine Hematology & Oncology | DX: Z13.820 Encounter for screening for osteoporosis (principal); Z85.3 Personal history of malignant neoplasm of breast ==

== ENCOUNTER → 2016-12-03 | Outpatient (CLI) | payer OTHER | LOC: FIMAGING 14:06 | PROVIDERS: ATTEND Family Medicine | DX: M41.26 Other idiopathic scoliosis, lumbar region (principal); M54.5 Low back pain ==

== ENCOUNTER → 2016-12-27 | Outpatient (CLI) | payer OTHER | LOC: FIMAGING 15:48 | PROVIDERS: ATTEND Family Medicine | DX: N13.30 Unspecified hydronephrosis (principal); M54.5 Low back pain; I51.3 Intracardiac thrombosis, not elsewhere classified; C50.919 Malignant neoplasm of unspecified site of unspecified female breast ==

== ENCOUNTER → 2018-05-11 | Outpatient (CLI) | payer OTHER | LOC: FIMAGING 16:29 | PROVIDERS: ATTEND Family Medicine | DX: M25.531 Pain in right wrist (principal) ==